=== PATIENT | male | born 1960 | race Caucasian/White ===

== ENCOUNTER → 2016-08-14 | Outpatient (REF) | payer OTHER ==
[2016-08-14 11:56] LABS: MEAN CORPUSCULAR HEMOGLOBIN 33.6 pg (27.0-33.0); MEAN CORPUSCULAR HGB CONC 33.3 g/dl (32.0-36.5); MEAN CORPUSCULAR VOLUME 100.9 fl (80.0-96.0); RED CELL DISTRIBUTION WIDTH 12.5 % (11.5-14.5); WHITE BLOOD COUNT 7.2 K/mm3 (4.0-10.0)
[2016-08-14 12:24] LABS: FOLATE 9.9 NG/ML
== END ==
LOC: M SFHCPLAZ 10:08
PROVIDERS: ATTEND Family Medicine
DX: D75.89 Other specified diseases of blood and blood-forming organs (principal)

== ENCOUNTER → 2016-12-22 | Outpatient (REF) | payer OTHER ==
[2016-12-22 16:46] LABS: ALBUMIN 3.9 GM/DL (3.2-5.2); ALBUMIN/GLOBULIN RATIO 1.22 (1.00-1.93); ALKALINE PHOSPHATASE 98 U/L (45-117); ALT/SGPT 44 U/L (12-78); AST/SGOT 29 U/L (15-37); BILIRUBIN,DIRECT < 0.1 MG/DL (0.0-0.2); BILIRUBIN,TOTAL 0.3 MG/DL (0.2-1.0); CHOLESTEROL LEVEL 180 MG/DL (<200); TOTAL PROTEIN 7.1 GM/DL (6.4-8.2); TRIGLYCERIDES LEVEL 236 MG/DL (<150)
== END ==
LOC: M SFHCPLAZ 14:14
PROVIDERS: ATTEND Family Medicine
DX: Z13.1 Encounter for screening for diabetes mellitus (principal); E78.5 Hyperlipidemia, unspecified; Z13.21 Encounter for screening for nutritional disorder

== ENCOUNTER → 2017-02-17 | Outpatient (CLI) | payer OTHER ==
--- NOTE | 2017-02-17 15:54 | REP ---
CT of the chest without IV contrast, low-dose lung screening CT: Studies performed without IV contrast and the images are presented at lung windowing only. Comparison is 07/30/2014. There are no lung masses, nodules, infiltrates or effusions. Impression: Category 1 low-dose screening chest CT. The probability of malignancy is less than 1%. The recommendation is for continued annual low-dose chest screening CT. Signed by Grayson Razo MD 02/17/2017 03:46 P
== END ==
LOC: M RAD 15:25
PROVIDERS: ATTEND Family Medicine
DX: F17.210 Nicotine dependence, cigarettes, uncomplicated (principal)

== ENCOUNTER → 2018-07-26 | Outpatient (REF) | payer OTHER | LOC: M SFHCPLAZ 15:07 | PROVIDERS: ATTEND Family Medicine | DX: E78.5 Hyperlipidemia, unspecified (principal); E55.9 Vitamin D deficiency, unspecified ==

== ENCOUNTER → 2018-08-10 | Outpatient (CLI) | payer OTHER ==
--- NOTE | 2018-08-10 15:43 | REP ---
Low-dose lung cancer screening CT study of the chest without contrast: History: Personal history of nicotine dependence. Comparison study February 17, 2017. Comparison exam July 30, 2014 is also reviewed. Dose reduction was performed utilizing CARE dose with automated adjustment of the kV and MAS according to patient size; iterative reconstruction, automated exposure control, as well as adaptive dose shielding. CT findings: There is no significant pulmonary nodule. Lungs are slightly hyperinflated as before. No other abnormality. Impression: Lungs RADS category one negative screening CT. Annual screening exam recommended. Electronically Signed by Vern Villa MD 08/10/2018 03:35 P
[2018-08-10 16:01] LABS: ALBUMIN 4.1 GM/DL (3.2-5.2); ALT/SGPT 64 U/L (12-78); BILIRUBIN,TOTAL 0.4 MG/DL (0.2-1.0); BLOOD UREA NITROGEN 10 MG/DL (7-18); CALCIUM LEVEL 9.2 MG/DL (8.5-10.1); CARBON DIOXIDE LEVEL 28 MEQ/L (21-32); CHLORIDE LEVEL 104 MEQ/L (98-107); CHOLESTEROL LEVEL 195 MG/DL (<200); CHOLESTEROL RISK RATIO 2.565 (<5); CREATININE FOR GFR 0.99 MG/DL (0.70-1.30); GLOMERULAR FILTRATION RATE > 60.0 (>56); GLUCOSE, FASTING 94 MG/DL (70-100); HDL CHOLESTEROL 76 MG/DL (>40); LDL CHOLESTEROL 96 MG/DL (<100); NON-HDL-C 119 MG/DL; POTASSIUM SERUM 4.8 MEQ/L (3.5-5.1); SODIUM LEVEL 138 MEQ/L (136-145); TOTAL PROTEIN 7.5 GM/DL (6.4-8.2); TRIGLYCERIDES LEVEL 115 MG/DL (<150)
[2018-08-10 16:08] LABS: TOTAL 25(OH) VITAMIN D 6.9 NG/ML (30.0-100.0)
== END ==
LOC: M RAD 14:56
PROVIDERS: ATTEND Family Medicine
DX: Z12.2 Encounter for screening for malignant neoplasm of respiratory organs (principal); Z87.891 Personal history of nicotine dependence; E78.5 Hyperlipidemia, unspecified; E55.9 Vitamin D deficiency, unspecified
CPT/HCPCS: 36415; 80053; 80061; 82306; G0297

== ENCOUNTER → 2019-03-27 | Outpatient (REF) | payer OTHER | LOC: M SFHCPLAZ 20:09 | PROVIDERS: ATTEND Student in an Organized Health Care Education/Training Program | DX: D48.9 Neoplasm of uncertain behavior, unspecified (principal) ==

== ENCOUNTER → 2019-03-31 | Outpatient (REF) | payer OTHER | LOC: M SFHCPLAZ 19:24 | PROVIDERS: ATTEND Dermatology | DX: C44.321 Squamous cell carcinoma of skin of nose (principal) ==

== ENCOUNTER → 2019-04-17 | Outpatient (CLI) | payer OTHER ==
[~2019-04-17] MED LIST: ATOR1TAB21 PO; LOSA100T50 PO; OXYC1TAB23 PO; VITA500045 PO
[2019-04-17 14:47] LABS: HEMATOCRIT 44.4 % (42.0-52.0); HEMOGLOBIN 15.2 g/dl (13.5-17.5); MEAN CORPUSCULAR HEMOGLOBIN 34.7 pg (27.0-33.0); MEAN CORPUSCULAR HGB CONC 34.2 g/dl (32.0-36.5); MEAN CORPUSCULAR VOLUME 101.4 fl (80.0-96.0); PLATELET COUNT, AUTOMATED 263 10^3/uL (150-450); RED BLOOD COUNT 4.38 10^6/uL (4.30-6.10); WHITE BLOOD COUNT 7.3 10^3/uL (4.0-10.0)
[2019-04-17 15:12] LABS: BLOOD UREA NITROGEN 13 MG/DL (7-18); CALCIUM LEVEL 9.5 MG/DL (8.5-10.1); CARBON DIOXIDE LEVEL 26 MEQ/L (21-32); CHLORIDE LEVEL 106 MEQ/L (98-107); CREATININE FOR GFR 0.93 MG/DL (0.70-1.30); GLOMERULAR FILTRATION RATE > 60.0 (>56); GLUCOSE, FASTING 91 MG/DL (70-100); POTASSIUM SERUM 4.7 MEQ/L (3.5-5.1); SODIUM LEVEL 139 MEQ/L (136-145)
--- NOTE | 2019-04-17 22:44 | REP ---
CHEST X-RAY, TWO VIEWS: History: Squamous cell carcinoma of the skin. Comparison chest x-ray: 04/22/2016 Findings: The lungs are hyperinflated but free of infiltrate. The pleural angles are sharp. Thoracic aorta is calcific. Heart size is normal. Pulmonary vasculature is not increased. There are old healed rib fractures on the left. IMPRESSION: Hyperinflation. Otherwise, no acute disease. Electronically Signed by Vern Villa MD 04/18/2019 07:45 A
== END ==
LOC: M LAB 13:53
PROVIDERS: ATTEND Plastic Surgery Surgery of the Hand
DX: C44.321 Squamous cell carcinoma of skin of nose (principal)

== ENCOUNTER 2019-04-20 06:01 | Day surgery (SDC) | payer OTHER ==
[~2019-04-20] VITALS: Ht 175.3 cm; Wt 89.4 kg
[~2019-04-20 06:01] MED LIST changes: +LR 1,000 ML IV ONE; -OXYC1TAB23 PO; +ceFAZolin SOD 1 GM in D5W MINI-BAG PLUS 50 ML IV ONE
[2019-04-20] MEDS ORDERED: LIDOCAINE 2% W/EPIN INJ 20ML **PRES FREE As Ordered ONE (06:50)
[2019-04-20] MEDS ORDERED: LIDOCAINE W/EPINEPHRINE 1% 20ML VIAL As Ordered ONE (06:51)
[2019-04-20] MEDS ORDERED: BACITRACIN OINT 30GM As Ordered ONE (06:51)
[2019-04-20] MEDS ORDERED: POVIDONE-IODINE 5% OPHTH PREP SOL 30ML As Ordered ONE (06:55)
[2019-04-20] MEDS ORDERED: BACITRACIN PWD 50,000 UNITS VIAL As Ordered ONE (07:16)
[2019-04-20] MEDS ORDERED: fentaNYL 250 MCG/5 ML INJECTION (J3010) As Ordered ONE (07:19)
[2019-04-20] MEDS ORDERED: MIDAZOLAM INJ 2 MG/2 ML VIAL (J2250) As Ordered ONE (07:20)
[2019-04-20] MEDS ORDERED: PROPOFOL 200 MG/20 ML VIAL As Ordered ONE (07:21)
[2019-04-20] MEDS ORDERED: dexameTHASONE 4 MG/ML 1ML VIAL (J1100) As Ordered ONE (07:21)
[2019-04-20] MEDS ORDERED: LIDOCAINE 2% INJ 100 MG/5 ML SDV (FOR ANES.) As Ordered ONE (07:21)
[2019-04-20] MEDS ORDERED: ONDANSETRON 4MG/2ML VIAL (J2405) As Ordered ONE (07:21)
[2019-04-20] MEDS ORDERED: ROCURONIUM BROMIDE 50 MG/5 ML VIAL As Ordered ONE (07:21)
--- NOTE | 2019-04-20 09:10 | POST-OPPD ---
Postoperative Procedure Note Date Of Procedure: Apr 20, 2019 PREOPERATIVE DIAGNOSIS: Malignant lesion right and left nostrils POSTOPERATIVE DIAGNOSIS: same FINDINGS: Right nostril 2x2.5cm fungating lesion, Left nostril 0.3x0.3cm PROCEDURE: Excision right and left nostril malignant lesions SURGEON: Dr Dias ANESTHESIA: General SPECIMENS: Right nostril lesion FS, additional margines right nostril. Left nostril lesion FS. ESTIMATED BLOOD LOSS: 10cc REPLACED: none DRAINS: none COMPLICATIONS: none POSTOPERATIVE CONDITION: stable SHEYLA DIAS DO Apr 20, 2019 09:10
[2019-04-20] MEDS ORDERED: OXYC1TAB23 PO (09:17)
[2019-04-20] MEDS ORDERED: LABETALOL HCL 100 MG/20 ML VIAL As Ordered ONE (09:22)
[2019-04-20 09:25] VITALS: BP 172/77
[2019-04-20] MEDS ORDERED: fentaNYL 100 MCG/2 ML INJECTION (J3010) As Ordered ONE (09:27)
[2019-04-20] MEDS ORDERED: fentaNYL 100 MCG/2 ML INJECTION (J3010) IV PRN (09:30)
[2019-04-20] MEDS ORDERED: METOCLOPRAMIDE INJ 10MG/2ML VIAL (J2765) IV PRN (09:30)
[2019-04-20] MEDS ORDERED: LR 1,000 ML IV SCH (09:30)
[2019-04-20] MEDS ORDERED: ONDANSETRON 4MG/2ML VIAL (J2405) IV PRN (09:30)
[2019-04-20] MEDS ORDERED: PERCOCET 5MG/325MG TAB PO PRN (09:30)
[2019-04-20] MEDS ORDERED: LABETALOL HCL 100 MG/20 ML VIAL IV PRN (09:30)
[2019-04-20 12:55] VITALS: BP 139/70
--- NOTE | 2019-04-20 22:21 | RO ---
DATE OF PROCEDURE: 04/20/2019 PREPROCEDURE DIAGNOSIS: Lateral nostril malignant lesion. POSTPROCEDURE DIAGNOSIS: Lateral nostril malignant lesion. PROCEDURE: Excision of right and left nostril malignant lesion. SURGEON: Kate Trevino DO ANESTHESIA: General. BLOOD LOSS: 10 mL. SPECIMENS SENT: Left nostril mass, frozen section. Right nostril mass, frozen section and additional margins. There were no drains. No complications. DESCRIPTION OF PROCEDURE: This is a 58-year-old male who presents to our clinic with a large fungating lesion on right nostril. It measures 2 x 2-1/2 cm and biopsy-proven squamous cell carcinoma and also small lesion on the left nostril, anterior nostril, which is 0.3 x 0.3 cm. Patient is scheduled for excision. The risks and benefits and alternatives discussed with the patient in detail, and he is ready to proceed on the day of surgery. Informed consent confirmed. He was brought into the operating room, placed in supine position. Preoperative antibiotics were given. Sequential stockings placed on the lower calves. General anesthesia was induced. He was prepped and draped in the usual sterile fashion. We started our procedure on the left side. The lesion was re-measured. It was 0.3 x 0.3 cm in diameter, it is round. The margin was taken, 3 mm, and an elliptical incision was carried out using a #15 blade. Hemostasis obtained using electrocautery, and the lesion was sent for frozen section. It is confirmed being squamous cell carcinoma. The wound was irrigated and closed with interrupted #5- 0 chromic sutures. Then, we turned our attention to the right side. The lesion was 2 x 2-1/2 cm, it is partially on the exterior portion of the nostril and partially on the inside lateral portion of the nostril. The lesion was re-measured, 3 mm margins were outlined and excision was carried out. We had previously also infiltrated 2% lidocaine with epinephrine in the area. The lesion was fully excised, full thickness, including the piece of the cartilage that was involving into the lesion and sent for pathology for identifying the margins. Also, the additional 2 mm margin was also resected and sent to pathology. The wound was irrigated and hemostasis obtained using electrocautery. The edges were then forwarded and approximated with interrupted #5-0 chromic and #4-0 chromic sutures, approximating the mucosal layer with the skin layer, and covering the cartilage completely. Dressing was applied with Bacitracin to the incision site. The patient was extubated in the operating room and transferred to the recovery room in stable condition. We will be waiting for permanent pathology report on this lesion as well. DAVIS
--- NOTE | 2019-04-22 09:50 | ECGEPIP ---
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
== END 2019-04-20 12:57 | disposition home or self-care (01) ==
LOC: M SDC 06:01
PROVIDERS: ATTEND Plastic Surgery Surgery of the Hand
DX: C44.321 Squamous cell carcinoma of skin of nose (principal); I10 Essential (primary) hypertension; E78.5 Hyperlipidemia, unspecified; K21.9 Gastro-esophageal reflux disease without esophagitis; F17.218 Nicotine dependence, cigarettes, with other nicotine-induced disorders; Z79.899 Other long term (current) drug therapy
CPT/HCPCS: 11640; 11643; 88305; 93005; J0690; J1100; J2250; J2405; J3010

== ENCOUNTER → 2019-04-28 | Outpatient (REF) | payer OTHER ==
[~2019-04-28] MED LIST changes: -LR 1,000 ML IV ONE; +OXYC1TAB23 PO; -ceFAZolin SOD 1 GM in D5W MINI-BAG PLUS 50 ML IV ONE
[2019-04-28 19:25] LABS: HEMOGLOBIN A1c 5.8 %
== END ==
LOC: M SFHCPLAZ 15:24
DX: Z13.1 Encounter for screening for diabetes mellitus (principal); E55.9 Vitamin D deficiency, unspecified

== ENCOUNTER 2019-05-09 07:17 | Day surgery (SDC) | payer OTHER ==
[~2019-05-09] VITALS: Ht 175.3 cm; Wt 88.8 kg
[~2019-05-09 07:17] MED LIST changes: +LR 1,000 ML IV ONE; +ceFAZolin SOD 1 GM in D5W MINI-BAG PLUS 50 ML IV ONE
[2019-05-09] MEDS ORDERED: LIDOCAINE 2% INJ 100 MG/5 ML SDV (FOR ANES.) As Ordered ONE ×2 (07:54→10:26)
[2019-05-09] MEDS ORDERED: PROPOFOL 200 MG/20 ML VIAL As Ordered ONE ×2 (07:54→10:27)
[2019-05-09] MEDS ORDERED: fentaNYL 100 MCG/2 ML INJECTION (J3010) As Ordered ONE (07:54)
[2019-05-09] MEDS ORDERED: ROCURONIUM BROMIDE 50 MG/5 ML VIAL As Ordered ONE ×2 (07:54→09:39)
[2019-05-09] MEDS ORDERED: MIDAZOLAM INJ 2 MG/2 ML VIAL (J2250) As Ordered ONE (07:54)
[2019-05-09] MEDS ORDERED: OXYMETAZOLINE NASAL SPRAY (AFRIN) As Ordered ONE (08:04)
[2019-05-09] MEDS ORDERED: BACITRACIN OINT 30GM As Ordered ONE (08:12)
[2019-05-09] MEDS ORDERED: LIDOCAINE 2% W/EPIN INJ 20ML **PRES FREE As Ordered ONE (08:12)
[2019-05-09] MEDS ORDERED: EPINEPHrine INJ 1 MG/ML 1ML AMP As Ordered ONE (08:13)
[2019-05-09] MEDS ORDERED: POVIDONE-IODINE 5% OPHTH PREP SOL 30ML As Ordered ONE (08:34)
[2019-05-09] MEDS ORDERED: dexameTHASONE 4 MG/ML 1ML VIAL (J1100) As Ordered ONE (08:50)
[2019-05-09] MEDS ORDERED: ALBUTEROL 6.7GM INHALER **FOR ANES. CART/OMNICELL ONLY As Ordered ONE (08:51)
[2019-05-09] MEDS ORDERED: LIDOCAINE W/EPINEPHRINE 1% 20ML VIAL As Ordered ONE (09:08)
[2019-05-09] MEDS ORDERED: BACITRACIN PWD 50,000 UNITS VIAL As Ordered ONE (09:10)
[2019-05-09] MEDS ORDERED: HYDROmorphone HCL 2 MG/ML 1ML VIAL (J1170) As Ordered ONE (09:11)
[2019-05-09] MEDS ORDERED: METOCLOPRAMIDE INJ 10MG/2ML VIAL (J2765) As Ordered ONE (09:17)
[2019-05-09] MEDS ORDERED: PHENYLephrine HCL 500 MCG/5 ML (100MCG/ML) SYRINGE (J2370) As Ordered ONE (09:18)
[2019-05-09] MEDS ORDERED: ePHEDrine SULFATE 25 MG/5 ML(5MG/ML) SYRINGE As Ordered ONE (09:22)
[2019-05-09] MEDS ORDERED: NEOSTIGMINE 10 MG/10 ML VIAL (J2710) As Ordered ONE ×2 (09:25→09:26)
[2019-05-09] MEDS ORDERED: ONDANSETRON 4MG/2ML VIAL (J2405) As Ordered ONE (09:25)
[2019-05-09] MEDS ORDERED: GLYCOPYRROLATE INJ 0.2 MG/ML 2 ML VIAL As Ordered ONE (09:25)
[2019-05-09] MEDS ORDERED: SUGAMMADEX SODIUM 500 MG/5 ML VIAL (BRIDION) As Ordered ONE (10:40)
--- NOTE | 2019-05-09 11:03 | POST-OPPD ---
Postoperative Procedure Note Date Of Procedure: May 09, 2019 PREOPERATIVE DIAGNOSIS: Right nasal acquired deformity, s/p SCC resection POSTOPERATIVE DIAGNOSIS: same FINDINGS: Right nose alae defect 2x1 cm full thickness PROCEDURE: Right nasal alae reconstruction with nasolabial flap, bilobed mucoid advancement flap and cartilage graft. Donor site right ear. SURGEON: Dr Dias ANESTHESIA: General SPECIMENS: none ESTIMATED BLOOD LOSS: 5cc REPLACED: none DRAINS: none COMPLICATIONS: none POSTOPERATIVE CONDITION: Stable SHEYLA DIAS DO May 09, 2019 11:03
[2019-05-09] MEDS ORDERED: TYLETAB14 PO (11:14)
[2019-05-09] MEDS ORDERED: KEFL500C17 PO (11:14)
[2019-05-09] MEDS ORDERED: PERCOCET 5MG/325MG TAB PO PRN (11:45)
[2019-05-09] MEDS ORDERED: METOCLOPRAMIDE INJ 10MG/2ML VIAL (J2765) IV PRN (11:45)
[2019-05-09] MEDS ORDERED: ONDANSETRON 4MG/2ML VIAL (J2405) IV PRN (11:45)
[2019-05-09] MEDS ORDERED: fentaNYL 100 MCG/2 ML INJECTION (J3010) IV PRN (11:45)
[2019-05-09] MEDS ORDERED: LR 1,000 ML IV SCH (11:45)
[2019-05-09 14:30] VITALS: BP 152/74
--- NOTE | 2019-05-09 20:12 | RO ---
DATE OF PROCEDURE: 05/09/2019 PREPROCEDURE DIAGNOSIS: Right nasal acquired deformity, status post squamous cell carcinoma resection. POSTPROCEDURE DIAGNOSIS: Right nasal acquired deformity, status post squamous cell carcinoma resection. PROCEDURE: Right nasal alae reconstruction with nasolabial flap, bilobed mucoid advancement flap and a cartilage graft. Donor site is right ear. SURGEON: Kate Trevino DO ANESTHESIA: General. No specimens were sent. Blood Loss: 5 mL. No replacements needed. No drains. DESCRIPTION OF PROCEDURE: This is a 58-year-old male who is a current patient of ours. The patient had a fungating squamous cell carcinoma lesion. It was removed 2 weeks ago from his right nostril. The margins of the resection are clear. The patient is ready for the reconstruction. The defect on the right nasal alae is 2 x 1 cm in its full thickness. It is very well healed at this point, and he is ready to go. All the risks and benefits and alternatives discussed with the patient in detail, and he is ready to proceed. The day of surgery, informed consent was confirmed. He and his both had all their questions answered and patient is ready to proceed. The patient was brought into the operating room, placed in supine position. Preoperative antibiotics were given, sequential stockings were placed on the lower calves, and general anesthesia was induced. He was prepped and draped in the usual sterile fashion. The donor site is going to be left posterior ear for the cartilage. The patient has a full thickness defect, like I mentioned, so a three-dimensional reconstruction needs to be carried out. We started our procedure by infiltrating 2% lidocaine with epinephrine in posterior ear for the donor site and then we measured out our defect on the right nostril. Compared it to the left and all the measurements were done to match the right side to the left as much as possible. We made an incision along the posterior auricular crease and then sharp dissection was carried out until the cartilage identified, and then the graft was harvested using a scalpel and Iris scissors. The graft was elevated and resected, and it is 2-1/2 x 1 cm and it was placed in a moist gauze and placed separately. Also, a strip of skin from posterior ear was also harvested, and it is about 0.7 x 2 cm in diameter. The wounds irrigated and closed in layers with interrupted #4-0 Monocryl and #4-0 chromic sutures. Then, we turned our attention to the nasal defect, with planning for bilobed advancement flap on mucoid advancement to re-create the lining of the nose. So, the incision was carried out along the border of the mucoid portion and outside skin, which was healed from the previous operation very well. And then sharp dissection with Iris scissors was done, the mucoid flaps elevated superiorly about 1-1/2 cm. The 1 cm was then measured and transected horizontally and then we were able to advance the flap without any tension. On created defect, we placed the full-thickness skin graft, which was harvested from the posterior ear, which was sutured in place with interrupted #5- chromic sutures, interrupted fashion, and we measured our cartilage and it fit perfectly to create the alar rim. At this point, we measured out the nasal labial flap, and the flap was raised on the right nasal labial portion . Hemostasis was obtained using electrocautery, and the flap was slightly thinned. There was no muscle involved. Then, it was turned superiorly and a corner stitch was placed. At this point, the cartilage graft was placed in place and secured in place with interrupted #4-0 Monocryl sutures, and then we started gradual closure between the nasolabial flap, the superior portion of the nasal defect, and inferiorly with the advanced bilobed flap. After closure completed with interrupted #4-0 Monocryl sutures, the corner of the pedicle of the flap was checked again, and it is in good perfusion. At this point, we placed nasal packing with the Xeroform into the right nostril, and the open area of the pedicle was covered also with the Xeroform and Gelfoam, and a dressing was created. The ear was dressed with Xeroform and a gauze, and patient was extubated without any difficulties and then transferred to the recovery room in stable condition. The flap was checked several times for the postop, and it is in good viable condition. Patient is going to be going home and followed up in the clinic on Wednesday. DAVIS
== END 2019-05-09 15:09 | disposition home or self-care (01) ==
LOC: M SDC 07:17
PROVIDERS: ATTEND Plastic Surgery Surgery of the Hand
DX: C44.321 Squamous cell carcinoma of skin of nose (principal); I10 Essential (primary) hypertension; E78.5 Hyperlipidemia, unspecified; K21.9 Gastro-esophageal reflux disease without esophagitis; Z79.899 Other long term (current) drug therapy; F17.218 Nicotine dependence, cigarettes, with other nicotine-induced disorders
CPT/HCPCS: 14060; 15260; 21235; 30430; J0690; J1100; J1170; J2250; J2370; J2405; J2765; J3010

== ENCOUNTER 2019-05-22 09:04 | Day surgery (SDC) | payer OTHER ==
[~2019-05-22] VITALS: Ht 175.3 cm; Wt 88.5 kg
[~2019-05-22 09:04] MED LIST changes: +KEFL500C17 PO; +LIDOCAINE 2% INJ 100 MG/5 ML SDV (FOR ANES.) As Ordered ONE; -LR 1,000 ML IV ONE; +NS 1,000 ML IV ONE; +PROPOFOL 200 MG/20 ML VIAL As Ordered ONE; +TYLETAB14 PO; -ceFAZolin SOD 1 GM in D5W MINI-BAG PLUS 50 ML IV ONE
[2019-05-22] MEDS ORDERED: PROPOFOL 200 MG/20 ML VIAL As Ordered ONE ×4 (09:48→10:29)
--- NOTE | 2019-05-22 10:44 | ROOR ---
Patient Name: Tenzin Estrada Procedure Date: 05/22/2019 9:40 AM Date of : 1960 Age: 58 Room: [facility] Gender: Male Note Status: Finalized Procedure: Total Colonoscopy to Cecum + Cold Snare Polypectomy + Hemoclips Indications: High risk colon cancer surveillance: Personal history of colonic polyps, Last colonoscopy: 2014 Providers: Jorge Johnson MD Referring MD: Mayito Alonso Do Requesting Provider: Medicines: Monitored Anesthesia Care Complications: No immediate complications. Procedure: Pre-Anesthesia Assessment: - The heart rate, respiratory rate, oxygen saturations, blood pressure, adequacy of pulmonary ventilation, and response to care were monitored throughout the procedure. The Colonoscope was introduced through the anus and advanced to the cecum, identified by appendiceal orifice and ileocecal valve. The Colonoscope was introduced through the and advanced to. The Colonoscope was introduced through the and advanced to. The colonoscopy was performed without difficulty. The patient tolerated the procedure well. The quality of the bowel preparation was excellent. Findings: The perianal and digital rectal examinations were normal. Non-bleeding internal hemorrhoids were found during retroflexion. The hemorrhoids were small and Grade I (internal hemorrhoids that do not prolapse). Scattered small-mouthed diverticula were found in the recto-sigmoid colon and sigmoid colon. A medium polyp was found in the transverse colon. The polyp was sessile. The polyp was removed with a cold snare. Resection and retrieval were complete. To prevent bleeding after the polypectomy, two hemostatic clips were successfully placed (MR conditional). There was no bleeding at the end of the procedure. A large polyp was found in the mid ascending colon. The polyp was sessile. The polyp was removed with a cold snare. Polyp resection was incomplete. The resected tissue was retrieved. To prevent bleeding after the polypectomy, three hemostatic clips were successfully placed (MR conditional). There was no bleeding at the end of the procedure. The exam was otherwise without abnormality on direct and retroflexion views. Impression: - Non-bleeding internal hemorrhoids. - Diverticulosis in the recto-sigmoid colon and in the sigmoid colon. - One medium polyp in the transverse colon, removed with a cold snare. Resected and retrieved. Clips (MR conditional) were placed. - One large polyp in the mid ascending colon, removed with a cold snare. Incomplete resection. Resected tissue retrieved. Clips (MR conditional) were placed. - The examination was otherwise normal on direct and retroflexion views. - The exam was otherwise normal to the cecum. Recommendation: - Patient has a contact number available for emergencies. The signs and symptoms of potential delayed complications were discussed with the patient. Return to normal activities tomorrow. Written discharge instructions were provided to the patient. - High fiber diet. - Discharge patient to home. - Continue present medications. - Await pathology results. - Telephone GI clinic for pathology results in 1 week. - Repeat colonoscopy for surveillance based on pathology results. - Return to referring physician. - The findings and recommendations were discussed with the patient's family. Jorge Johnson MD Jorge Johnson MD 05/22/2019 10:44:38 AM Electronically signed by Jorge Johnson MD Number of Addenda: 0 Note Initiated On: 05/22/2019 9:40 AM Estimated Blood Loss: Estimated blood loss: none.
[2019-05-22 11:07] VITALS: BP 128/57
== END 2019-05-22 11:15 | disposition home or self-care (01) ==
LOC: M OPP 09:04
PROVIDERS: ATTEND Internal Medicine Gastroenterology
DX: Z12.11 Encounter for screening for malignant neoplasm of colon (principal); Z86.010 Personal history of colon polyps; D12.3 Benign neoplasm of transverse colon; D12.2 Benign neoplasm of ascending colon; K57.30 Diverticulosis of large intestine without perforation or abscess without bleeding; I10 Essential (primary) hypertension; E78.5 Hyperlipidemia, unspecified; F17.210 Nicotine dependence, cigarettes, uncomplicated; Z79.899 Other long term (current) drug therapy

== ENCOUNTER 2019-06-01 07:47 | Day surgery (SDC) | payer OTHER ==
[~2019-06-01] VITALS: Ht 175.3 cm; Wt 89.4 kg
[~2019-06-01 07:47] MED LIST changes: +LIDOCAINE 1% MDV 20ML VIAL SQ PRN; -LIDOCAINE 2% INJ 100 MG/5 ML SDV (FOR ANES.) As Ordered ONE; +LR 1,000 ML IV ONE; -NS 1,000 ML IV ONE; +POVIDONE-IODINE 5% OPHTH PREP SOL 30ML As Ordered ONE; -PROPOFOL 200 MG/20 ML VIAL As Ordered ONE; +ceFAZolin SOD 1 GM in D5W MINI-BAG PLUS 50 ML IV ONE
[2019-06-01] MEDS ORDERED: LIDOCAINE 2% INJ 100 MG/5 ML SDV (FOR ANES.) As Ordered ONE (07:57)
[2019-06-01] MEDS ORDERED: PROPOFOL 200 MG/20 ML VIAL As Ordered ONE (07:57)
[2019-06-01] MEDS ORDERED: ONDANSETRON 4MG/2ML VIAL (J2405) As Ordered ONE (07:57)
[2019-06-01] MEDS ORDERED: MIDAZOLAM INJ 2 MG/2 ML VIAL (J2250) As Ordered ONE (07:57)
[2019-06-01] MEDS ORDERED: dexameTHASONE 4 MG/ML 1ML VIAL (J1100) As Ordered ONE (07:57)
[2019-06-01] MEDS ORDERED: fentaNYL 100 MCG/2 ML INJECTION (J3010) As Ordered ONE ×2 (07:58→10:34)
[2019-06-01] MEDS ORDERED: BACITRACIN OINT 30GM As Ordered ONE (09:07)
[2019-06-01] MEDS ORDERED: LIDOCAINE 2% W/EPIN INJ 20ML **PRES FREE As Ordered ONE (09:07)
[2019-06-01] MEDS ORDERED: LIDOCAINE W/EPINEPHRINE 1% 20ML VIAL As Ordered ONE ×3 (09:08→09:38)
[2019-06-01] MEDS ORDERED: ROCURONIUM BROMIDE 50 MG/5 ML VIAL As Ordered ONE ×2 (09:33→09:40)
[2019-06-01] MEDS ORDERED: ACETAMINOPHEN 1000MG 100ML IV BTL (OFIRMEV) (J0131 PER 10MG) As Ordered ONE (09:34)
[2019-06-01] MEDS ORDERED: PHENYLephrine HCL 500 MCG/5 ML (100MCG/ML) SYRINGE (J2370) As Ordered ONE (09:34)
[2019-06-01] MEDS ORDERED: VASOPRESSIN INJ 20 UNITS/ML VIAL As Ordered ONE (09:47)
[2019-06-01] MEDS ORDERED: ePHEDrine SULFATE 25 MG/5 ML(5MG/ML) SYRINGE As Ordered ONE (10:09)
[2019-06-01] MEDS ORDERED: SUGAMMADEX SODIUM 500 MG/5 ML VIAL (BRIDION) As Ordered ONE (10:13)
[2019-06-01] MEDS ORDERED: NITROGLYCERIN 2% OINT 1 GM *U/D* PKT As Ordered ONE ×2 (10:35→10:52)
--- NOTE | 2019-06-01 10:53 | POST-OPPD ---
Postoperative Procedure Note Date Of Procedure: Jun 01, 2019 PREOPERATIVE DIAGNOSIS: right nose acquired deformity. Pedicle flap for reconstruction POSTOPERATIVE DIAGNOSIS: same FINDINGS: Pedicle flap right nose PROCEDURE: Second part reconstruction right nose deformity. Division of the pedicled flap. SURGEON: Dr Dias MEDICAL SPECIALIST: Dr Christopher ANESTHESIA: General SPECIMENS: Right nose tissue ESTIMATED BLOOD LOSS: 5cc REPLACED: none DRAINS: none COMPLICATIONS: none POSTOPERATIVE CONDITION: stable SHEYLA DIAS DO Jun 01, 2019 10:53
[2019-06-01] MEDS ORDERED: METOCLOPRAMIDE INJ 10MG/2ML VIAL (J2765) IV PRN (11:30)
[2019-06-01] MEDS ORDERED: oxyCODONE 5MG TAB PO PRN (11:30)
[2019-06-01] MEDS ORDERED: LR 1,000 ML IV SCH (11:30)
[2019-06-01] MEDS ORDERED: ONDANSETRON 4MG/2ML VIAL (J2405) IV PRN (11:30)
[2019-06-01] MEDS ORDERED: fentaNYL 100 MCG/2 ML INJECTION (J3010) IV PRN (11:30)
[2019-06-01] MEDS ORDERED: PROPARACAINE 0.5% OPHTH SOL 15ML As Ordered ONE (12:32)
[2019-06-01] MEDS ORDERED: PROPARACAINE 0.5% OPHTH SOL 15ML OS ONE (12:45)
[2019-06-01 13:05] VITALS: BP 149/72
--- NOTE | 2019-06-05 08:16 | RO ---
DATE OF PROCEDURE: 06/01/2019 PREOPERATIVE DIAGNOSIS: Right nose acquired deformity, pedicle flap for reconstruction. POSTOPERATIVE DIAGNOSIS: Right nose acquired deformity, pedicle flap for reconstruction. PROCEDURE: Second part reconstruction right nose deformity division of pedicle flap. SURGEON: Dr. Kate Trevino HAND BRIM IRONER: Dr. Bronson ANESTHESIA: General. FINDINGS: Pedicle flap on right nose. SPECIMEN: Right nose tissue. ESTIMATED BLOOD LOSS: 5 mL. REPLACEMENT NEEDED: None. DRAINS: None. COMPLICATIONS: None. DESCRIPTION OF PROCEDURE: This is a 58-year-old male who is being seen in our office and he is in the process with reconstruction of his right nose. The original acquired deformity was done after the squamous cell carcinoma was excised from his nostril creating a full thickness defect. The patient had nasolabial pedicle flap placed and as much as the mucinous level of reconstruction done as well as the cartilage. Now we are at the stage where we are ready to divide the pedicle flap. All risks and benefits and alternatives discussed with the patient and he is ready to proceed. On the day of surgery, informed consent was confirmed and he was brought into the operating room and placed in supine position. Preoperative antibiotics were given. Sequential stockings placed on the lower calves. General anesthesia was induced. We started our procedure by measuring and reassessing the flap once again. It has excellent perfusion so we have outlined the area of separation at the base of the flap on the medial right cheek. The incision was made with 10 blade. Hemostasis was maintained with pressure on the cheek and electrocautery. We were able to reexcise a small amount of that tissue and the right cheek was completely closed with interrupted #4-0 Monocryl sutures. Then we turned our attention to the flap. The flap had good bed bleeding and it is pink and with good perfusion, so we started debulking it without disattaching any edges. The fat was debulked on the middle of the flap and then the edges were trimmed. Then we closed the medial portion of the small opening medially at the tip of the nose so the tip of the nose itself made a small incision there and fitted the flap in there better to eliminate the small opening that we had. Interrupted #4-0 Monocryl sutures were used for that. Then the lateral portion of the flap like I said was trimmed millimeter by millimeter maintaining perfusion. Then the lateral portion was set in place with interrupted #4-0 Monocryl sutures as well. The inner lining of the nose is completely healed from the previous operation which was advancement mucoid by pedicle flap, but completely healed, as much of the skin graft that was placed there shows complete incorporation and has good healthy edge of the skin that was coming from the nasolabial flap which we already attached today. There is a small amount of white portion on the middle of the flap which is gradually coming back. To strengthen the flap, we applied the nitropaste as a dressing on it as well. The patient was extubated in the operating room without any difficulty and was transferred to the recovery room in stable condition.
== END 2019-06-01 13:09 | disposition home or self-care (01) ==
LOC: M SDC 07:47
PROVIDERS: ATTEND Plastic Surgery Surgery of the Hand
DX: M95.0 Acquired deformity of nose (principal); C44.321 Squamous cell carcinoma of skin of nose; I10 Essential (primary) hypertension; E78.5 Hyperlipidemia, unspecified; K21.9 Gastro-esophageal reflux disease without esophagitis; Z86.79 Personal history of other diseases of the circulatory system; F17.218 Nicotine dependence, cigarettes, with other nicotine-induced disorders; Z79.899 Other long term (current) drug therapy
CPT/HCPCS: 15630; 88302; J0131; J0690; J1100; J2250; J2370; J2405; J3010

== ENCOUNTER → 2019-07-14 | Outpatient (REF) | payer OTHER ==
[~2019-07-14] MED LIST changes: -LIDOCAINE 1% MDV 20ML VIAL SQ PRN; -LR 1,000 ML IV ONE; -POVIDONE-IODINE 5% OPHTH PREP SOL 30ML As Ordered ONE; -ceFAZolin SOD 1 GM in D5W MINI-BAG PLUS 50 ML IV ONE
== END ==
LOC: M LAB REF 18:44
PROVIDERS: ATTEND Dermatology
DX: L56.8 Other specified acute skin changes due to ultraviolet radiation (principal)

== ENCOUNTER → 2019-09-04 | Outpatient (CLI) | payer OTHER ==
--- NOTE | 2019-09-04 16:09 | REP ---
Low-dose lung screening CT of the chest: Comparison is the most recent prior study of 08/10/2018. The study is performed without IV contrast. The images are presented at lung windowing only. There are no lung nodules or masses. There are no infiltrates or pleural effusions. There is a curvilinear scar inferiorly in the lateral segment right middle lobe, also unchanged. Impression: Category II low-dose lung screening CT of the chest. The probability of malignancy is less than 1%. Depending on risk factors, consider annual follow-up low-dose lung screening CT of the chest. Electronically Signed by Grayson Razo MD 09/04/2019 04:00 P
== END ==
LOC: M RAD 15:16
PROVIDERS: ATTEND Student in an Organized Health Care Education/Training Program
DX: Z12.2 Encounter for screening for malignant neoplasm of respiratory organs (principal); F17.200 Nicotine dependence, unspecified, uncomplicated

== ENCOUNTER 2019-09-11 08:56 | Day surgery (SDC) | payer OTHER ==
[~2019-09-11] VITALS: Ht 175.3 cm; Wt 88.9 kg
[~2019-09-11 08:56] MED LIST changes: +NS 1,000 ML IV ONE; +VITA50005 PO; +propofoL 200 MG/20 ML VIAL As Ordered ONE
[2019-09-11] MEDS ORDERED: propofoL 200 MG/20 ML VIAL As Ordered ONE (10:24)
--- NOTE | 2019-09-11 10:37 | ROOR ---
Patient Name: Tenzin Estrada Procedure Date: 09/11/2019 9:59 AM Date of : 1960 Age: 58 Room: [facility] Gender: Male Note Status: Finalized Procedure: Total Colonoscopy to Cecum + Bx.+ Carbon Spot Marking Indications: Colon polyps of uncertain behavior, Follow-up for history of colon polyps of uncertain behavior Providers: Jorge Johnson MD Referring MD: Christina FLORES DO Requesting Provider: Medicines: Monitored Anesthesia Care Complications: No immediate complications. Procedure: Pre-Anesthesia Assessment: - The heart rate, respiratory rate, oxygen saturations, blood pressure, adequacy of pulmonary ventilation, and response to care were monitored throughout the procedure. The Colonoscope was introduced through the anus and advanced to the cecum, identified by appendiceal orifice and ileocecal valve. The colonoscopy was performed without difficulty. The patient tolerated the procedure well. The quality of the bowel preparation was excellent. Findings: The perianal and digital rectal examinations were normal. Non-bleeding internal hemorrhoids were found during retroflexion. The hemorrhoids were small and Grade I (internal hemorrhoids that do not prolapse). A medium polyp was found in the proximal ascending colon. The polyp was sessile. The polyp was removed with a jumbo cold forceps. Resection and retrieval were complete. Area was successfully injected with Spot (carbon black) for tattooing. A small polyp was found in the distal transverse colon. The polyp was sessile. The polyp was removed with a jumbo cold forceps. Resection and retrieval were complete. Area was successfully injected with Spot (carbon black) for tattooing. The exam was otherwise without abnormality on direct and retroflexion views. Impression: - Non-bleeding internal hemorrhoids. - One medium polyp in the proximal ascending colon, removed with a jumbo cold forceps. Resected and retrieved. Injected. - One small polyp in the distal transverse colon, removed with a jumbo cold forceps. Resected and retrieved. Injected. - The examination was otherwise normal on direct and retroflexion views. - The exam was otherwise normal to the cecum. Recommendation: - Patient has a contact number available for emergencies. The signs and symptoms of potential delayed complications were discussed with the patient. Return to normal activities tomorrow. Written discharge instructions were provided to the patient. - Full liquid diet. - Discharge patient to home. - Continue present medications. - Await pathology results. - Telephone GI clinic for pathology results in 1 week. - Repeat colonoscopy for surveillance based on pathology results. - Return to referring physician. - The findings and recommendations were discussed with the patient's family. Jorge Johnson MD Jorge Johnson MD 09/11/2019 10:37:30 AM Electronically signed by Jorge Johnson MD Number of Addenda: 0 Note Initiated On: 09/11/2019 9:59 AM Estimated Blood Loss: Estimated blood loss: none.
[2019-09-11 10:45] VITALS: BP 141/75
== END 2019-09-11 11:08 | disposition home or self-care (01) ==
LOC: M OPP 08:56
PROVIDERS: ATTEND Internal Medicine Gastroenterology
DX: K64.0 First degree hemorrhoids (principal); D12.2 Benign neoplasm of ascending colon; D12.3 Benign neoplasm of transverse colon; D37.4 Neoplasm of uncertain behavior of colon; F17.210 Nicotine dependence, cigarettes, uncomplicated; Z86.03 Personal history of neoplasm of uncertain behavior; Z85.841 Personal history of malignant neoplasm of brain; Z79.899 Other long term (current) drug therapy

== ENCOUNTER → 2020-09-09 | Outpatient (CLI) | payer OTHER ==
[~2020-09-09] MED LIST changes: -NS 1,000 ML IV ONE; -propofoL 200 MG/20 ML VIAL As Ordered ONE
--- NOTE | 2020-09-09 14:39 | REP ---
INDICATION: CIGARETTE NICOTINE DEPENDENCE COMPARISON: Multiple examinations dating through 07/20/2014 TECHNIQUE: Axial noncontrast images from the thoracic inlet to the upper abdomen using low-dose lung screening technique (LDCT). FINDINGS: Bilateral lung storey are well aerated and clear. Small linear scarring in the right middle lobe unchanged. No suspicious nodule or mass lesion. No consolidation or effusion. Tracheobronchial tree is patent. IMPRESSION: Lung rads category 2. Stable linear scar in the right middle lobe. Management recommendations include annual low-dose CT evaluation. <Electronically signed by Myles Lee > 09/09/20 [id number]
== END ==
LOC: M RAD 13:50
PROVIDERS: ATTEND Student in an Organized Health Care Education/Training Program
DX: F17.210 Nicotine dependence, cigarettes, uncomplicated (principal); R91.8 Other nonspecific abnormal finding of lung field

== ENCOUNTER → 2020-10-07 | Outpatient (REF) | payer OTHER | LOC: M SFHCPLAZ 13:29 | PROVIDERS: ATTEND Family Medicine | DX: I10 Essential (primary) hypertension (principal) ==

== ENCOUNTER → 2020-11-08 | Outpatient (CLI) | payer OTHER | LOC: M LABSMTC 11:35 | PROVIDERS: ATTEND Anesthesiology | DX: Z20.828 Contact with and (suspected) exposure to other viral communicable diseases (principal); Z11.59 Encounter for screening for other viral diseases ==

== ENCOUNTER 2020-11-13 10:11 | Day surgery (SDC) | payer OTHER ==
[~2020-11-13] VITALS: Ht 175.3 cm; Wt 83.9 kg
[~2020-11-13 10:11] MED LIST changes: +NS 1,000 ML IV ONE
[2020-11-13] MEDS ORDERED: LIDOCAINE 2% MDV 20ML VIAL As Ordered ONE (10:41)
[2020-11-13] MEDS ORDERED: propofoL 200 MG/20 ML VIAL As Ordered ONE (10:41)
--- NOTE | 2020-11-13 11:05 | ROOR ---
Patient Name: Tenzin Estrada Procedure Date: 11/13/2020 10:35 AM Date of : 1960 Age: 59 Room: [facility] Gender: Male Note Status: Finalized Procedure: Total Colonoscopy to Cecum + Cold Snare Polypectomy + Biopsy Polypectomy Indications: High risk colon cancer surveillance: Personal history of colonic polyps, Last colonoscopy: 2019 Providers: Jorge Johnson MD Referring MD: Mayito Alonso Do Requesting Provider: Medicines: Monitored Anesthesia Care Complications: No immediate complications. Procedure: Pre-Anesthesia Assessment: - The heart rate, respiratory rate, oxygen saturations, blood pressure, adequacy of pulmonary ventilation, and response to care were monitored throughout the procedure. The Colonoscope was introduced through the anus and advanced to the cecum, identified by appendiceal orifice and ileocecal valve. The colonoscopy was performed without difficulty. The patient tolerated the procedure well. The quality of the bowel preparation was good. Findings: The perianal and digital rectal examinations were normal. Non-bleeding internal hemorrhoids were found during retroflexion. The hemorrhoids were small and Grade I (internal hemorrhoids that do not prolapse). Scattered small-mouthed diverticula were found in the recto-sigmoid colon, sigmoid colon and descending colon. A small polyp was found at 25 cm proximal to the anus. The polyp was sessile. The polyp was removed with a cold snare. Resection and retrieval were complete. A diminutive polyp was found at 30 cm proximal to the anus. The polyp was sessile. The polyp was removed with a jumbo cold forceps. Resection and retrieval were complete. The exam was otherwise without abnormality on direct and retroflexion views. Impression: - Non-bleeding internal hemorrhoids. - Diverticulosis in the recto-sigmoid colon, in the sigmoid colon and in the descending colon. - One small polyp at 25 cm proximal to the anus, removed with a cold snare. Resected and retrieved. - One diminutive polyp at 30 cm proximal to the anus, removed with a jumbo cold forceps. Resected and retrieved. - The examination was otherwise normal on direct and retroflexion views. - The exam was otherwise normal to the cecum. Recommendation: - Patient has a contact number available for emergencies. The signs and symptoms of potential delayed complications were discussed with the patient. Return to normal activities tomorrow. Written discharge instructions were provided to the patient. - High fiber diet. - Discharge patient to home. - Continue present medications. - Await pathology results. - Telephone GI clinic for pathology results in 1 week. - Repeat colonoscopy in 3 years for surveillance. - Return to referring physician. - The findings and recommendations were discussed with the patient. Procedure Code(s): --- Professional --- 93453, Colonoscopy, flexible; with removal of tumor(s), polyp(s), or other lesion(s) by snare technique 19351, 59, Colonoscopy, flexible; with biopsy, single or multiple Diagnosis Code(s): --- Professional --- Z86.010, Personal history of colonic polyps K64.0, First degree hemorrhoids K63.5, Polyp of colon K57.30, Diverticulosis of large intestine without perforation or abscess without bleeding CPT copyright 2019 [employer] [place] [employer]. All rights reserved. The codes documented in this report are preliminary and upon sexologist review may be revised to meet current compliance requirements. Jorge Johnson MD Jorge Johnson MD 11/13/2020 11:05:12 AM Electronically signed by Jorge Johnson MD Number of Addenda: 0 Note Initiated On: 11/13/2020 10:35 AM Estimated Blood Loss: Estimated blood loss: none.
[2020-11-13 11:50] VITALS: BP 137/74
== END 2020-11-13 11:57 | disposition home or self-care (01) ==
LOC: M OPP 10:11
PROVIDERS: ATTEND Internal Medicine Gastroenterology
DX: Z12.11 Encounter for screening for malignant neoplasm of colon (principal); Z86.010 Personal history of colon polyps; D12.6 Benign neoplasm of colon, unspecified; K57.30 Diverticulosis of large intestine without perforation or abscess without bleeding; K64.0 First degree hemorrhoids; F17.210 Nicotine dependence, cigarettes, uncomplicated; Z79.899 Other long term (current) drug therapy

== ENCOUNTER → 2020-12-25 | Outpatient (REF) | payer OTHER ==
[~2020-12-25] MED LIST changes: -NS 1,000 ML IV ONE
[2020-12-25 13:36] LABS: HEMATOCRIT 42.6 % (42.0-52.0); HEMOGLOBIN 14.7 g/dl (13.5-17.5); MEAN CORPUSCULAR HEMOGLOBIN 34.3 pg (27.0-33.0); MEAN CORPUSCULAR HGB CONC 34.5 g/dl (32.0-36.5); MEAN CORPUSCULAR VOLUME 99.3 fl (80.0-96.0); PLATELET COUNT, AUTOMATED 237 10^3/uL (150-450); RED BLOOD COUNT 4.29 10^6/uL (4.30-6.10)
[2020-12-25 14:08] LABS: ALBUMIN 3.8 GM/DL (3.2-5.2); ALT/SGPT 40 U/L (12-78); BILIRUBIN,TOTAL 0.6 MG/DL (0.2-1.0); BLOOD UREA NITROGEN 8 MG/DL (7-18); CALCIUM LEVEL 8.9 MG/DL (8.5-10.1); CARBON DIOXIDE LEVEL 26 MEQ/L (21-32); CHLORIDE LEVEL 107 MEQ/L (98-107); CHOLESTEROL LEVEL 183 MG/DL (<200); CHOLESTEROL RISK RATIO 2.103 (<5); GLOMERULAR FILTRATION RATE > 60.0 (>56); GLUCOSE, FASTING 78 MG/DL (70-100); HDL CHOLESTEROL 87 MG/DL (>40); LDL CHOLESTEROL 74 MG/DL (<100); NON-HDL-C 96 MG/DL; POTASSIUM SERUM 4.4 MEQ/L (3.5-5.1); SODIUM LEVEL 139 MEQ/L (136-145); TOTAL PROTEIN 7.1 GM/DL (6.4-8.2); TRIGLYCERIDES LEVEL 110 MG/DL (<150)
== END ==
LOC: M SFHCPLAZ 10:59
PROVIDERS: ATTEND Family Medicine
DX: I25.10 Atherosclerotic heart disease of native coronary artery without angina pectoris (principal); I10 Essential (primary) hypertension

== ENCOUNTER → 2021-10-13 | Outpatient (CLI) | payer OTHER ==
[~2021-10-13] MED LIST changes: +ERGO500029 PO; +LOSA100T45 PO; -LOSA100T50 PO; -VITA50005 PO
== END ==
LOC: M RAD 13:11
PROVIDERS: ATTEND Student in an Organized Health Care Education/Training Program
DX: Z12.2 Encounter for screening for malignant neoplasm of respiratory organs (principal); F17.210 Nicotine dependence, cigarettes, uncomplicated

== ENCOUNTER → 2021-10-13 | Outpatient (CLI) | payer OTHER ==
[2021-10-13 15:37] LABS: HEMATOCRIT 43.8 % (42.0-52.0); HEMOGLOBIN 15.5 g/dl (13.5-17.5); MEAN CORPUSCULAR HEMOGLOBIN 35.9 pg (27.0-33.0); MEAN CORPUSCULAR HGB CONC 35.4 g/dl (32.0-36.5); MEAN CORPUSCULAR VOLUME 101.4 fl (80.0-96.0); PLATELET COUNT, AUTOMATED 240 10^3/uL (150-450); RED BLOOD COUNT 4.32 10^6/uL (4.30-6.10); WHITE BLOOD COUNT 7.6 10^3/uL (4.0-10.0)
[2021-10-13 16:03] LABS: HEMOGLOBIN A1c 5.7 %
[2021-10-13 16:14] LABS: ALBUMIN 4.2 GM/DL (3.2-5.2); ALT/SGPT 40 U/L (12-78); BILIRUBIN,TOTAL 0.3 MG/DL (0.2-1.0); BLOOD UREA NITROGEN 12 MG/DL (7-18); CALCIUM LEVEL 9.6 MG/DL (8.5-10.1); CARBON DIOXIDE LEVEL 30 MEQ/L (21-32); CHLORIDE LEVEL 105 MEQ/L (98-107); CHOLESTEROL LEVEL 198 MG/DL (<200); CHOLESTEROL RISK RATIO 2.475 (<5); CREATININE FOR GFR 0.94 MG/DL (0.70-1.30); GLOMERULAR FILTRATION RATE > 60.0 (>56); GLUCOSE, FASTING 86 MG/DL (70-100); HDL CHOLESTEROL 80 MG/DL (>40); LDL CHOLESTEROL 102 MG/DL (<100); NON-HDL-C 118 MG/DL; SODIUM LEVEL 138 MEQ/L (136-145); TOTAL PROTEIN 7.8 GM/DL (6.4-8.2); TRIGLYCERIDES LEVEL 82 MG/DL (<150)
[2021-10-13 16:15] LABS: FOLATE 5.4 NG/ML; VITAMIN B12 LEVEL 277 PG/ML
== END ==
LOC: M PLALAB 13:41
PROVIDERS: ATTEND Student in an Organized Health Care Education/Training Program
DX: Z12.2 Encounter for screening for malignant neoplasm of respiratory organs (principal); F17.210 Nicotine dependence, cigarettes, uncomplicated

== ENCOUNTER → 2024-02-28 | Outpatient (REF) | payer OTHER ==
[~2024-02-28] MED LIST changes: -LOSA100T45 PO; +LOSA100T46 PO
== END ==
LOC: M SFHCPLAZ 16:01
PROVIDERS: ATTEND Student in an Organized Health Care Education/Training Program
DX: E78.2 Mixed hyperlipidemia (principal); I10 Essential (primary) hypertension

== ENCOUNTER → 2024-02-28 | Outpatient (CLI) | payer OTHER ==
[2024-02-28 18:05] LABS: BASO % 0.4 % (0.0-1.0); EOS % 0.5 % (0.0-3.0); HEMATOCRIT 41.2 % (42.0-52.0); HEMOGLOBIN 14.5 g/dl (13.5-17.5); LYMPH # 1.2 10^3/uL (1.5-5.0); LYMPH % 14.6 % (24.0-44.0); MEAN CORPUSCULAR HEMOGLOBIN 35.6 pg (27.0-33.0); MEAN CORPUSCULAR HGB CONC 35.2 g/dl (32.0-36.5); MEAN CORPUSCULAR VOLUME 101.2 fl (80.0-96.0); MONO # 0.7 10^3/uL (0.0-0.8); MONO % 8.3 % (2.0-8.0); NEUTROPHILS # 6.4 10^3/uL (1.5-8.5); PLATELET COUNT, AUTOMATED 259 10^3/uL (150-450); RED BLOOD COUNT 4.07 10^6/uL (4.30-6.10); WHITE BLOOD COUNT 8.4 10^3/uL (4.0-10.0)
[2024-02-28 18:26] LABS: MAU/CREAT RATIO 23.2 MCG/MG (0.0-30.0)
[2024-02-28 18:28] LABS: ALBUMIN 4.4 G/DL (3.2-5.2); ALKALINE PHOSPHATASE 92 U/L (46-116); ALT/SGPT 64 U/L (7.0-40); AST/SGOT 44 U/L (<34); BILIRUBIN,TOTAL 0.4 MG/DL (0.3-1.2); BLOOD UREA NITROGEN 10 MG/DL (9-23); CALCIUM LEVEL 9.6 MG/DL (8.3-10.6); CARBON DIOXIDE LEVEL 31 MMOL/L (20-31); CHLORIDE LEVEL 103 MMOL/L (98-107); CHOLESTEROL LEVEL 184 MG/DL (<200); CHOLESTEROL RISK RATIO 1.77 (<5); CREATININE FOR GFR 0.76 MG/DL (0.70-1.30); GLOMERULAR FILTRATION RATE > 60.0 (>49); GLUCOSE, FASTING 82 MG/DL (74-106); HDL CHOLESTEROL 103.4 MG/DL (>40); LDL CHOLESTEROL 70.2 MG/DL (<100); NON-HDL-C 80.6 MG/DL; POTASSIUM SERUM 4.7 MMOL/L (3.5-5.1); SODIUM LEVEL 135 MMOL/L (136-145); TOTAL PROTEIN 7.5 G/DL (5.7-8.2); TRIGLYCERIDES LEVEL 52 MG/DL (<150)
[2024-02-28 18:29] LABS: THYROID STIMULATING HORMONE 1.538 uIU/ML (0.55-4.78)
[2024-02-28 18:30] LABS: VITAMIN B12 LEVEL 323 PG/ML (211-911)
== END ==
LOC: M PLALAB 16:09
PROVIDERS: ATTEND Student in an Organized Health Care Education/Training Program
DX: I10 Essential (primary) hypertension (principal); E78.2 Mixed hyperlipidemia

== ENCOUNTER → 2024-03-29 | Outpatient (CLI) | payer OTHER | LOC: M RAD 08:24 | PROVIDERS: ATTEND Student in an Organized Health Care Education/Training Program | DX: I10 Essential (primary) hypertension (principal) ==

== ENCOUNTER 2024-04-10 21:42 | Emergency (ER) | payer OTHER ==
[~2024-04-10] VITALS: Ht 175.3 cm; Wt 82.5 kg
[2024-04-10 22:02] VITALS: TEMP 97.3
[2024-04-10 22:18] LABS: BASO % 0.1 % (0.0-1.0); EOS # 0.1 10^3/uL (0.0-0.5); EOS % 0.6 % (0.0-3.0); HEMATOCRIT 40.6 % (42.0-52.0); HEMOGLOBIN 14.2 g/dl (13.5-17.5); LYMPH # 1.2 10^3/uL (1.5-5.0); LYMPH % 8.9 % (24.0-44.0); MEAN CORPUSCULAR HEMOGLOBIN 35.4 pg (27.0-33.0); MEAN CORPUSCULAR VOLUME 101.2 fl (80.0-96.0); MONO # 0.9 10^3/uL (0.0-0.8); MONO % 6.9 % (2.0-8.0); NEUTROPHILS # 11.2 10^3/uL (1.5-8.5); PLATELET COUNT, AUTOMATED 237 10^3/uL (150-450); RED BLOOD COUNT 4.01 10^6/uL (4.30-6.10); WHITE BLOOD COUNT 13.5 10^3/uL (4.0-10.0)
[2024-04-10] MEDS: ASPIRIN 81MG CHEW TABLET PO ONE (22:23)
[2024-04-10 22:24] VITALS: BP 147/74
[2024-04-10] MEDS: NITROGLYCERIN 0.4MG SUBL TABLET SL PRN (22:24)
[2024-04-10 22:34] LABS: D-DIMER QUANT 1.54 ug/mL (<0.5); INR 0.96; PARTIAL THROMBOPLASTIN TIME 34.2 SECONDS (24.8-34.2); PROTHROMBIN TIME 12.5 SECONDS (12.5-14.5)
[2024-04-10 22:42] LABS: CK-MB VALUE MASS < 1.0 NG/ML (<3.6)
[2024-04-10 22:43] LABS: LIPASE 40 U/L (12-53)
[2024-04-10 22:45] LABS: ALBUMIN 4.2 G/DL (3.2-5.2); ALKALINE PHOSPHATASE 89 U/L (46-116); ALT/SGPT 56 U/L (7.0-40); AST/SGOT 36 U/L (<34); BILIRUBIN,DIRECT 0.2 MG/DL (<0.4); BILIRUBIN,TOTAL 0.5 MG/DL (0.3-1.2); BLOOD UREA NITROGEN 9 MG/DL (9-23); CALCIUM LEVEL 9.6 MG/DL (8.3-10.6); CARBON DIOXIDE LEVEL 27 MMOL/L (20-31); CHLORIDE LEVEL 103 MMOL/L (98-107); CREATININE FOR GFR 0.93 MG/DL (0.70-1.30); GLOMERULAR FILTRATION RATE > 60.0 (>49); GLUCOSE, FASTING 92 MG/DL (74-106); POTASSIUM SERUM 4.1 MMOL/L (3.5-5.1); SODIUM LEVEL 135 MMOL/L (136-145); THYROID STIMULATING HORMONE 2.053 uIU/ML (0.55-4.78); TOTAL PROTEIN 7.3 G/DL (5.7-8.2)
[2024-04-10 22:46] LABS: FREE T4 1.25 NG/DL (0.89-1.76)
[2024-04-10 22:48] LABS: CPK CREATINE PHOSPHOKINASE 97 U/L (46-171); MB/CK RELATIVE INDEX 1.03 (< OR =4)
[2024-04-10] MEDS ORDERED: ISOVUE-370 76% 100ML VIAL As Ordered ONE (23:24)
[2024-04-11 00:03] LABS: CK-MB VALUE MASS 1.1 NG/ML (<3.6); MB/CK RELATIVE INDEX 1.37 (< OR =4)
[2024-04-11] MEDS ORDERED: IPRATROPIUM 0.5MG/ALBUTEROL 2.5MG INH SOL UD 3ML (DUONEB) NEB ONE (00:35)
[2024-04-11] MEDS: IPRATROPIUM 0.5MG/ALBUTEROL 2.5MG INH SOL UD 3ML (DUONEB) NEB ONE ×2 (00:47)
[2024-04-11 00:48] VITALS: O2SAT 97
[2024-04-11] MEDS: FAMOTIDINE 20MG/2ML VIAL IVP ONE (00:58)
[2024-04-11] MEDS: methylPREDNISolone 125MG 2ML VIAL IV ONE (02:05)
[2024-04-11] MEDS ORDERED: COMBAER6 INH (03:20)
[2024-04-11 03:30] VITALS: BP 115/61; O2SAT 92
[2024-04-11] MEDS: COMBIVENT RESPIMAT 100-20MCG INHALER 4GM INH STA (03:30)
== END 2024-04-11 03:49 | disposition home or self-care (01) ==
LOC: M ED 21:42
DX: R07.9 Chest pain, unspecified (principal); J44.9 Chronic obstructive pulmonary disease, unspecified; R06.02 Shortness of breath; I10 Essential (primary) hypertension; F17.200 Nicotine dependence, unspecified, uncomplicated; Z79.52 Long term (current) use of systemic steroids; Z79.02 Long term (current) use of antithrombotics/antiplatelets; Z79.899 Other long term (current) drug therapy
CPT/HCPCS: 71045; 71275; 80048; 80076; 81001; 82550; 82553; 83690; 84439; 84443; 84484; 85025; 85379; 85610; 85730; 87486; 87581; 87633; 87798; 93005; 93041; 94640; 94760; 96374; 96375; 99285; J2919; Q9967; S0028

== ENCOUNTER → 2024-08-16 | Outpatient (CLI) | payer OTHER ==
[~2024-08-16] MED LIST changes: +COMBAER6 INH
== END ==
LOC: M CARPUL 08:30
PROVIDERS: ATTEND Student in an Organized Health Care Education/Training Program
DX: I10 Essential (primary) hypertension (principal)

== ENCOUNTER → 2024-11-22 | Outpatient (POV) | payer OTHER ==
[~2024-11-22] VITALS: Ht 175.3 cm; Wt 81.8 kg
[~2024-11-22] MED LIST changes: +VITA50TA47 PO
[2024-11-22 15:00] VITALS: BP 160/80; O2SAT 95
== END ==
LOC: M IRPOV 13:59
PROVIDERS: ATTEND Radiology Diagnostic Radiology
DX: I77.4 Celiac artery compression syndrome (principal); F17.210 Nicotine dependence, cigarettes, uncomplicated; I10 Essential (primary) hypertension; E78.5 Hyperlipidemia, unspecified; Z79.899 Other long term (current) drug therapy; Z80.9 Family history of malignant neoplasm, unspecified; Z85.828 Personal history of other malignant neoplasm of skin; Z86.79 Personal history of other diseases of the circulatory system

== ENCOUNTER → 2025-04-26 | Outpatient (CLI) | payer OTHER | LOC: M RAD 16:34 | PROVIDERS: ATTEND Internal Medicine Critical Care Medicine | DX: Z12.2 Encounter for screening for malignant neoplasm of respiratory organs (principal); F17.218 Nicotine dependence, cigarettes, with other nicotine-induced disorders; I25.10 Atherosclerotic heart disease of native coronary artery without angina pectoris; J43.9 Emphysema, unspecified; I70.0 Atherosclerosis of aorta; K76.0 Fatty (change of) liver, not elsewhere classified ==